=== PATIENT | female | born 1965 | race Hispanic/Latino ===

== ENCOUNTER 2024-06-03 20:02 | Emergency (ER) | payer SELFPAY ==
[~2024-06-03 20:02] MED LIST: Iopamidol 370 76% 100 ML VIAL ONE
[2024-06-03 20:26] LABS: Hematocrit 42.4 % (36.0-47.0); Hemoglobin 13.6 g/dL (12.0-16.0); Mean Corpuscular HGB CONC 32.1 g/dL (32.0-36.0); Mean Corpuscular Hemoglobin 28.7 pg (27.0-31.0); Mean Corpuscular Volume 89.5 fl (78.0-98.0); Mean Platelet Volume 11.7 fL (7.4-10.4); Platelet Count 218 10x3/uL (130-400); RBC Distribution Width 11.3 % (11.5-14.5); Red Blood Cell (RBC) Count 4.74 mill/uL (4.20-5.40)
[2024-06-03 20:27] LABS: Eosinophils 2 % (0-10); Lymphocytes 13 % (21-51); MDiff Complete? YES; Monocytes 2 % (0-10); Neutrophil 83 % (42-75)
[2024-06-03] MEDS ORDERED: Aspirin Chewable 81 MG TAB ONE (20:41)
[2024-06-03] MEDS ORDERED: Nitroglycerin 0.4 MG TAB 1 EACH ONE (20:41)
[2024-06-03 20:46] LABS: ALT (SGPT) 21 U/L (8-55); AST (SGOT) 27 U/L (5-34); Albumin 4.4 g/dL (3.4-4.8); Alkaline Phosphatase 90 U/L (40-110); Anion Gap 18 mmol/L (10-20); BUN (Urea Nitrogen) 9 mg/dL (9.8-20.1); Bilirubin, Total 0.8 mg/dL (0.2-1.2); Calc. Creatinine Clearance 0 mL/min (70-130); Calcium 10.1 mg/dL (7.8-10.44); Carbon Dioxide 21 mmol/L (23-31); Chloride 101 mmol/L (98-107); Estimated GFR 91; Globulin 3.7 g/dL (2.4-3.5); Glucose 120 mg/dL (80-115); Lipase 26 U/L (8-78); Potassium 3.3 mmol/L (3.5-5.1); Protein, Total 8.1 g/dL (5.8-8.1); Sodium 137 mmol/L (136-145); Troponin I Less than 0.010 ng/mL (< 0.028)
[2024-06-03] MEDS ORDERED: Potassium Chloride 20 MEQ TAB ONE (21:24)
== END 2024-06-04 00:01 | disposition left against medical advice (07) ==
LOC: MADERS 20:02
DX: R07.89 Other chest pain (principal); R79.1 Abnormal coagulation profile; R29.700 NIHSS score 0
CPT/HCPCS: 71275; 74174; 80053; 83690; 84484; 85025; 85379; 93005; 94760; Q9967